=== PATIENT | female | born 1990 | race Caucasian/White ===

== ENCOUNTER 2017-05-02 08:49 | Inpatient (IN) | payer MEDICARE, MEDICAID ==
[~2017-05-02] VITALS: Ht 144.8 cm; Wt 81.2 kg
[~2017-05-02 08:49] MED LIST: CARB200T1 PO; LEVE750T25 PO
[2017-05-02 08:53] VITALS: BP 150/106
--- NOTE | 2017-05-02 08:59 | NUR ---
PATIENT TO ER BED 6.
--- NOTE | 2017-05-02 09:13 | NUR ---
26/F bib mother for evaluation of epigastric pain since last night. Pt denies N/V/D/. Pt denies fever, c/o chills. Afebrile. AOX4, bahamian speaking. Pt unable to ambulate, hx spina bifida and seizures. VSS.
--- NOTE | 2017-05-02 09:20 | NUR ---
PATIENT BEING EVALUATED BY DR. DUARTE.
[2017-05-02] MEDS ORDERED: NACL 0.9% 1,000 ML IV SCH (09:22)
[2017-05-02] MEDS ORDERED: FAMOTIDINE 20 MG/2 ML VIAL IVP ONE (09:25)
[2017-05-02] MEDS ORDERED: DICYCLOMINE HCL LIQUID 20 MG, ALUMINUM HYD/MAG/SIMETHICONE 30 ML, LIDOCAINE VISCOUS 2% ... PO ONE ×3 (09:25)
[2017-05-02 10:14] LABS: BASOPHILS # (AUTO) 0.1 K/uL (0.00-0.22); BASOPHILS % (AUTO) 0.8 % (0.0-2.0); EOSINOPHILS # (AUTO) 0.2 K/uL (0-0.4); EOSINOPHILS % (AUTO) 1.6 % (0.0-4.0); HEMATOCRIT 39.7 % (36-48); HEMOGLOBIN 12.8 g/dL (12.0-16.0); LYMPHOCYTES # (AUTO) 0.4 K/uL (2.5-16.5); LYMPHOCYTES % (AUTO) 3.5 % (20.5-51.1); MEAN CORPUSCULAR HEMOGLOBIN 26 pg (27-31); MEAN CORPUSCULAR HGB CONC 32 g/dL (33-37); MEAN CORPUSCULAR VOLUME 79 fL (80-94); MONOCYTES # (AUTO) 0.1 K/uL (0.8-1.0); MONOCYTES % (AUTO) 1.1 % (1.7-9.3); NEUTROPHILS # (AUTO) 11.4 K/uL (1.8-7.7); PLATELET COUNT (AUTO) 337 K/uL (140-450); RED BLOOD CELL COUNT(AUTO) 5.02 MIL/uL (4.20-5.40); RED CELL DISTRIBUTION WIDTH 13.2 % (11.6-13.7); WHITE BLOOD COUNT (AUTO) 12.2 K/uL (4.8-10.8)
[2017-05-02 10:24] LABS: ANION GAP 14.4 (8-16); CARBON DIOXIDE 26.4 mmol/L (21-32); CREATININE 0.4 mg/dL (0.6-1.3); POTASSIUM 4.8 mmol/L (3.5-5.1)
[2017-05-02 10:29] LABS: ALBUMIN 3.5 g/dL (3.4-5.0); TOTAL BILIRUBIN 0.8 mg/dL (0.0-1.0)
--- NOTE | 2017-05-02 10:37 | NUR ---
Madeline care performed. New dry clear brief applied. Pt tolerated well. Pt placed in position of comfort. VSS.
[2017-05-02 11:00] LABS: APPEARANCE,URINE HAZY (CLEAR); BILIRUBIN,URINE NEGATIVE (NEGATIVE); BLOOD, URINE NEGATIVE (NEGATIVE); LEUKOCYTE ESTERASE ,URINE NEGATIVE (NEGATIVE); NITRITE, URINE POSITIVE (NEGATIVE); PH,URINE 7.5 (5.0-9.0); UGLUCOSE NEGATIVE (NEGATIVE)
[2017-05-02 11:03] LABS: COLOR,URINE YELLOW (YELLOW)
[2017-05-02 11:05] LABS: RBC,URINE 0-2 /HPF (0-5); WBC,URINE 0-4 /HPF (0-5)
--- NOTE | 2017-05-02 11:06 | NUR ---
Mother at bedside. Pt resting comfortably VSS.
[2017-05-02] MEDS ORDERED: cefTRIAXone 1,000 MG VIAL ONE (11:23)
[2017-05-02] MEDS ORDERED: ONDANSETRON 4 MG/2 ML VIAL IVP PRN (11:25)
[2017-05-02 11:52] LABS: PROTHROMBIN TIME 10.1 secs (10.8-13.4)
--- NOTE | 2017-05-02 11:56 | NUR ---
Patient will be admitted to care of Dr. Hargrove. Admited to M/S. Will go to room 110-B. Belongings list completed. Report to Daiana DORADO.
[2017-05-02 11:59] LABS: CHOL/HDL RATIO 2.8 (1-4.5); FREE T4 (FREE THYROXINE) 1.08 ng/dL (0.76-1.46); MAGNESIUM 2.1 mg/dL (1.8-2.4); PHOSPHORUS 3.5 mg/dL (2.5-4.9); THYROID STIMULATING HORMONE 1.61 uIU/mL (0.34-3.74)
--- NOTE | 2017-05-02 12:25 | NUR ---
PT AWAKE AND ALERT, NO SIGNS OF ACUTE DISTRESS. ESTONIAN SPEAKING. BOWEL SOUNDS ACTIVE IN ALL 4 QUADRANTS. BOWEL AND BLADDER INCONTINENCE. UNABLE TO AMBULATE. SKIN INTACT. IV PATENT AND ASYMPTOMATIC. PATIENT DENIES PAIN AT THIS TIME. ORIENTED PATIENT TO HOSPITAL AND TO UNIT, PATIENT VERBALIZES UNDERSTANDING. BED IN LOW POSITION WITH BILATERAL HALF SIDE RAILS UP, CALL LIGHT WITHIN REACH, SAFETY CHECKS IN PLACE. WILL CONTINUE TO MONITOR.
--- NOTE | 2017-05-02 12:25 | NUR ---
PT AWAKE AND ALERT, NO SIGNS OF ACUTE DISTRESS. VITALS STABLE BLOOD PRESSURE 135/83, PULSE 108, OXYGEN SATURATION 94%, RESPIRATIONS 18BPM, PAIN 0/10, TEMPERATURE 98.6. WILL CONTINUE TO MONITOR.
[2017-05-02] MEDS ORDERED: SODIUM PHOSPHATE 118 ML ENEM RC SCH (13:09)
[2017-05-02] MEDS: NACL 0.9% 1,000 ML IV SCH ×2 (14:41→20:46)
[2017-05-02] MEDS ORDERED: LACTULOSE 20 GM/30 ML UDC PO SCH (15:13)
--- NOTE | 2017-05-02 15:27 | NUR ---
RECEIVED NEW ORDERS FROM DR BETH, NOTED, WILL CARRY OUT.
--- NOTE | 2017-05-02 15:45 | NUR ---
PERFORMED FLEET ENEMA, PATIENT TOLERATED WELL, HAD SMALL BM, SOFT AND BROWN. WILL CONTINUE TO MONITOR.
[2017-05-02 16:00] VITALS: BP 127/78
--- NOTE | 2017-05-02 16:30 | NUR ---
PATIENT HAD LARGE BOWEL MOVEMENT, SOFT AND BROWN. WILL CONTINUE TO MONITOR.
--- NOTE | 2017-05-02 16:38 | NUR ---
SPOKE WITH DR GENTILE AND DR BETH REGARDING PATIENT PAIN IN ABDOMEN. RECEIVED ORDER FOR MORPHINE PRN. WILL AWAIT FOR PHARMACY TO VERIFY ORDER.
--- NOTE | 2017-05-02 17:10 | NUR ---
MORPHINE PRN ORDER STILL NOT VERIFIED BY PHARMACY CALLED AFTER HOURS PHARMACY NUMBER, WILL AWAIT VERIFICATION.
[2017-05-02] MEDS: MORPHINE SULFATE 2 MG/ML SYR IVP PRN (17:28)
--- NOTE | 2017-05-02 17:28 | NUR ---
PT ON RIGHT SIDE, NO SIGNS OF ACUTE DISTRESS. ADMINISTERED MORPHINE 2MG IVP ORDERED PRN FOR PAIN, WILL CONTINUE TO MONITOR.
--- NOTE | 2017-05-02 19:20 | NUR ---
PT AWAKE AND ALERT, NO SIGNS OF ACUTE DISTRESS. ENDORSED TO OR DIRECTOR NURSE FOR CONTINUITY OF CARE.
--- NOTE | 2017-05-02 19:21 | NUR ---
PATIENT IS CURRENTLY RESTING IN BED AWAKE ALERT ORIENTED KISWAHILI SPEAKING MOTHER AND BROTHER AT BEDSIDE WITH THE PATIENT.PATIENT DENIES PAIN IVF INFUSING WELL IV SITE PATENT NO INFILTRATION NOTED.PATIENT IS INCONTINENT BUT SHE IS CURRENTLY DRY AND CONTINUES TO HAVE SCD'S IN PLACE TO BOTH LOWER EXTREMITIES.CALL LIGHT WITHIN REACH WILL CONTINUE TO MONITOR.
--- NOTE | 2017-05-02 19:40 | NUR ---
MOTHER SHOWED ME PATIENT'S HOME MEDICATION AND WANT ME TO CHECK IF PATIENT WILL BE GETTING THIS MEDS TONITE PATIENT MOTHER STATES,"ITS TO PREVENT SEIZURES."I CHECKED AND TOLD THE MOTHER THAT THESE MEDS HAVE BEEN ALREADY ORDERED AND PATIENT WILL GET A DOSE TONIGHT ORDERED AND SIDE RAILS WILL BE PADDED FOR SEIZURE PRECAUTIONS.CALL LIGHT WITHIN REACH.
--- NOTE | 2017-05-02 20:00 | NUR ---
Patient's Plan of Care was discussed and reviewed with DEFLECTOR OPERATOR: VERONIQUE HUERTA
[2017-05-02 20:05] VITALS: BP 137/95
[2017-05-02] MEDS: carBAMazepine 200 MG TAB PO SCH (20:18)
[2017-05-02] MEDS: DOCUSATE SODIUM 100 MG GELCAP PO SCH (20:18)
[2017-05-02] MEDS: levETIRAcetam 500 MG TAB PO SCH (20:19)
[2017-05-02] MEDS ORDERED: NON-FORMULARY ITEM (Levetiracetam* (Keppra Xr*) 750 MG) PO SCH (21:00)
--- NOTE | 2017-05-02 22:15 | NUR ---
PATIENT CURRENTLY RESTING IN BED DENIES PAIN AT THIS TIME.CONTINUES TO BE KEPT CLEAN AND DRY NEEDS MET WILL CONTINUE TO MONITOR,IVF INFUSING WELL WILL CONTINUE TO MONITOR.
--- NOTE | 2017-05-03 00:02 | NUR ---
PATIENT IS CURRENTLY RESTING IN BED BUT AWAKENED FOR VITAL SIGNS AT THIS TIME.PATIENT DENIES PAIN,I CHECKED HER SHE IS CURRENTLY CLEAN AND DRY.IVF INFUSING WELL IV SITE PATENT.NO SEIZURE ACTIVITY NOTED SIDE RAILS PADDED FOR SAFETY.CONTINUES TO HAVE THE SCD'S IN PLACE FOR DVT PROPHALAXIS TO BOTH LOWER EXTREMITIES.CALL LIGHT WITHIN REACH WILL CONTINUE TO MONITOR.PATIENT CONTINUES TO BE NPO EXCEPT FOR MEDS.
[2017-05-03 00:04] VITALS: BP 112/56
--- NOTE | 2017-05-03 02:40 | NUR ---
PATIENT SLEEPING AT THIS TIME.PATIENT TURNED AND REPOSITIONED AND THEN WENT BACK TO SLEEP,IVF INFUSING WELL IV SITE PATENT WILL CONTINUE TO MONITOR.CALL LIGHT WITHIN REACH.
[2017-05-03] MEDS: NACL 0.9% 1,000 ML IV SCH ×4 (04:07→23:47)
--- NOTE | 2017-05-03 04:22 | NUR ---
PATIENT IS CURRENTLY RESTING IN BED,IVF INFUSING WELL IV SITE PATENT PATIENT HAS AN EPISODE OF INCONTINENCE I TOLD DANIELA BRAN AND DANIELA JAFFE TO CLEAN THE PATIENT AND TO TURN AND REPOSITION THE PATIENT.
--- NOTE | 2017-05-03 05:43 | NUR ---
I CALLED RADIOLOGY AND SPOKE TO GURJIT AND TOLD HIM THAT I STILL DON'T HAVE ANY RESULTS FOR THE US ABDOMEN LIMITED.HE SAID HE WILL CHECK AND SAID THE TEST WAS DONE YESTERDAY THEN HE SAID HE WILL CALL ME BACK.
--- NOTE | 2017-05-03 05:46 | NUR ---
GURJIT FROM RADIOLOGY BROUGHT THE RESULTS OF THE US ABDOMEN LIMITED AND HANDED TO ME. WILL PLACE IN THE CHART.
[2017-05-03 06:26] LABS: ANION GAP 14.1 (8-16); CARBON DIOXIDE 23.5 mmol/L (21-32); CREATININE 0.4 mg/dL (0.6-1.3); POTASSIUM 3.6 mmol/L (3.5-5.1)
[2017-05-03 06:40] LABS: BASOPHILS # (AUTO) 0.2 K/uL (0.00-0.22); BASOPHILS % (AUTO) 1.1 % (0.0-2.0); EOSINOPHILS # (AUTO) 0.2 K/uL (0-0.4); EOSINOPHILS % (AUTO) 1.7 % (0.0-4.0); HEMATOCRIT 36.3 % (36-48); HEMOGLOBIN 11.7 g/dL (12.0-16.0); LYMPHOCYTES # (AUTO) 1.2 K/uL (2.5-16.5); LYMPHOCYTES % (AUTO) 8.3 % (20.5-51.1); MEAN CORPUSCULAR HEMOGLOBIN 26 pg (27-31); MEAN CORPUSCULAR HGB CONC 32 g/dL (33-37); MEAN CORPUSCULAR VOLUME 82 fL (80-94); MONOCYTES # (AUTO) 0.6 K/uL (0.8-1.0); MONOCYTES % (AUTO) 4.1 % (1.7-9.3); NEUTROPHILS % (AUTO) 84.8 % (42.2-75.2); PLATELET COUNT (AUTO) 256 K/uL (140-450); RED BLOOD CELL COUNT(AUTO) 4.46 MIL/uL (4.20-5.40); RED CELL DISTRIBUTION WIDTH 13.5 % (11.6-13.7); WHITE BLOOD COUNT (AUTO) 14.2 K/uL (4.8-10.8)
--- NOTE | 2017-05-03 06:54 | NUR ---
PATIENT CURRENTLY AWAKE RESTING IN BED IN NO DISTRESS WILL CONTINUE TO MONITOR.CALL LIGHT WITHIN REACH.PATIENT CONTINUES TO BE CLEAN AND DRY.
[2017-05-03] MEDS: PANTOPRAZOLE 40 MG TABEC PO SCH (06:55)
--- NOTE | 2017-05-03 07:01 | NUR ---
PATIENT HAS BEEN SCREENED AND CATEGORIZED MODERATE NUTRITION RISK. PATIENT WILL BE SEEN WITHIN 3-5 DAYS OF ADMISSION. 05/05/17-05/07/17 WESLEY ARCHULETA MS, RDN
--- NOTE | 2017-05-03 07:11 | NUR ---
PATIENT STABLE REPORT ENDORSED TO ESTRADA VICTORIA AT BEDSIDE.
--- NOTE | 2017-05-03 07:12 | NUR ---
RECEIVED REPORT FROM ENVIRONMENTAL SERVICES FLOOR TECH NURSE AT BEDSIDE FOR CONTINUITY OF CARE. PT IS AWAKE AND ORIENTED. PT IS NEPALI SPEAKING. SCD ON LE. IV LEFT FA 22G NS AT 100ML/HR. LBM 05/02. SEIZURE AND FALL PRECAUTIONS IN PLACE. PT ON BEDREST. WILL BE BACK TO CONTINUE WITH MORNING MEDICATIONS.
--- NOTE | 2017-05-03 07:45 | NUR ---
VS: WNL. UPDATED BOARD. PT COMPLAINED OF PAIN IN R UPPER ABD. WILL MEDICATE WITH MORNING MEDS. PT STILL NPO WILL DISCUSS WITH MD ABOUT DIET. PT TO HAVE DOPPLER STUDIES TODAY. WILL CONTINUE TO MONITOR PT.
[2017-05-03 08:00] VITALS: BP 124/74
[2017-05-03] MEDS: carBAMazepine 200 MG TAB PO SCH ×2 (08:57→20:20)
[2017-05-03] MEDS: DOCUSATE SODIUM 100 MG GELCAP PO SCH ×2 (08:58→20:20)
[2017-05-03] MEDS: levETIRAcetam 500 MG TAB PO SCH ×2 (08:59→20:20)
[2017-05-03] MEDS ORDERED: PANTOPRAZOLE 40 MG INJ VIAL IVP SCH (09:00)
[2017-05-03] MEDS: MORPHINE SULFATE 2 MG/ML SYR IVP PRN (09:01)
--- NOTE | 2017-05-03 09:05 | NUR ---
ADMINISTERED MORNING MEDS AND PAIN MEDS. PT TOLERATED WELL. FAMILY AT BEDSIDE. ALL NEEDS MET. WILL CONTINUE TO MONITOR PT.
--- NOTE | 2017-05-03 10:50 | NUR ---
CHECKED ON PT. PT ON THE PHONE. NO COMPLAINTS AT THIS TIME. PAIN IS BETTER. WILL CONTINUE TO MONITOR.
--- NOTE | 2017-05-03 13:12 | NUR ---
CHECKED ON PT. ADMINISTERED NEW BAG OF NS AT 120ML/HR. NO COMPLAINTS AT THIS TIME. FAMILY AT BEDSIDE. WILL CONTINUE TO MONITOR.
[2017-05-03] MEDS ORDERED: LACTOBACILLUS RHAMNOSUS GG 1 EACH CAP PO SCH (14:00)
--- NOTE | 2017-05-03 14:10 | NUR ---
GOT CONSENT SIGNED BY MOM FOR CT OF ABD/PEL W/ CONTRAST. PT WILL EAT AFTER CT. ORDERED DIET.
[2017-05-03 16:00] VITALS: BP 139/81
--- NOTE | 2017-05-03 17:15 | NUR ---
PT STILL WAITING FOR CT ABD/PEL W/ CONTRAST. RADIOLOGY CALLED. MACHINE DOWN. ONCE FIXED WILL COMES GET PT.
--- NOTE | 2017-05-03 17:51 | NUR ---
RADIOLOGY TOOK PT FOR CT.
--- NOTE | 2017-05-03 18:46 | NUR ---
ADMINISTERED LATE MEDS. LACTOBACILLUS AND ROCEPHIN. PT TOLERATED WELL. PT LATE DINNER AFTER RETURNING FROM CT. NO COMPLAINTS AT THIS TIME. WILL CONTINUE TO MONITOR PT.
--- NOTE | 2017-05-03 19:15 | NUR ---
ENDORSED PT TO THE NIGHTSHIFT NURSE AT BEDSIDE FOR CONTINUITY OF CARE. PT IS EATING DINNER. MOM AT BEDSIDE. PT IS IN STABLE CONDITION.
--- NOTE | 2017-05-03 19:16 | NUR ---
PATIENT IS CURRENTLY SITTING UP IN BED EATING HER DINNER AND FAMILY AT BEDSIDE WITH THE PATIENT.IVF INFUSING WELL IV SITE PATENT NO INFILTRATION NOTED.PATIENT CONTINUES TO BE TURNED AND REPOSITIONED KEPT CLEAN AND DRY AND CONTINUES TO WEAR THE SCD'S FOR DVT PROPHALAXIS.PATIENT DENIES PAIN NEEDS CONTINUE TO BE MET.CALL LIGHT ALWAYS WITHIN REACH WILL CONTINUE TO MONITOR.
--- NOTE | 2017-05-03 19:30 | NUR ---
Patient's Plan of Care was discussed and reviewed with VIRTUAL CLASSROOM MANAGER: JUAN
[2017-05-03 20:00] VITALS: BP 132/83
--- NOTE | 2017-05-03 20:00 | NUR ---
Patient's Plan of Care was discussed and reviewed with TRUCK MANAGER: VERONIQUE HUERTA
--- NOTE | 2017-05-03 22:15 | NUR ---
PATIENT RESTING IN BED DENIES PAIN IVF INFUSING WELL IV SITE PATENT.CONTINUES TO BE TURNED AND REPOSITIONED FOR COMFORT.CALL LIGHT WITHIN REACH.
--- NOTE | 2017-05-04 00:05 | NUR ---
PATIENT IS SLEEPING AT THIS TIME AWAKENED FOR VITAL SIGNS PATIENT STABLE DENIES ANY PAIN.IVF INFUSING WELL IV SITE PATENT CALL LIGHT WITHIN REACH WILL CONTINUE TO MONITOR.
[2017-05-04 00:28] VITALS: BP 110/63
--- NOTE | 2017-05-04 02:56 | NUR ---
PATIENT IS CURRENTLY SLEEPING IN BED SNORING AT THIS TIME,IVF INFUSING WELL IV SITE PATENT CALL LIGHT WITHIN REACH NO SEIZURE ACTIVITY HAS BEEN NOTED.WILL CONTINUE TO MONITOR.
--- NOTE | 2017-05-04 04:15 | NUR ---
PATIENT IS CURRENTLY STABLE SLEEPING IN BED WILL CONTINUE TO MONITOR. CALL LIGHT WITHIN REACH.
[2017-05-04] MEDS: PANTOPRAZOLE 40 MG TABEC PO SCH (05:35)
--- NOTE | 2017-05-04 05:54 | NUR ---
PATIENT IS CURRENTLY SLEEPING IN BED AT THIS TIME NO PAIN OR DISCOMFORT NOTED NO SEIZURE ACTIVITY NOTED AT THIS TIME.IVF INFUSING WELL IV SITE PATENT WILL CONTINUE TO MONITOR.
[2017-05-04 05:55] LABS: BASOPHILS # (AUTO) 0.1 K/uL (0.00-0.22); BASOPHILS % (AUTO) 1.2 % (0.0-2.0); EOSINOPHILS # (AUTO) 0.1 K/uL (0-0.4); EOSINOPHILS % (AUTO) 1.6 % (0.0-4.0); HEMOGLOBIN 11.4 g/dL (12.0-16.0); LYMPHOCYTES # (AUTO) 1.3 K/uL (2.5-16.5); LYMPHOCYTES % (AUTO) 14.3 % (20.5-51.1); MEAN CORPUSCULAR HEMOGLOBIN 27 pg (27-31); MEAN CORPUSCULAR HGB CONC 33 g/dL (33-37); MEAN CORPUSCULAR VOLUME 81 fL (80-94); MONOCYTES # (AUTO) 0.7 K/uL (0.8-1.0); MONOCYTES % (AUTO) 7.8 % (1.7-9.3); NEUTROPHILS # (AUTO) 6.9 K/uL (1.8-7.7); NEUTROPHILS % (AUTO) 75.1 % (42.2-75.2); PLATELET COUNT (AUTO) 252 K/uL (140-450); RED BLOOD CELL COUNT(AUTO) 4.31 MIL/uL (4.20-5.40); RED CELL DISTRIBUTION WIDTH 13.5 % (11.6-13.7); WHITE BLOOD COUNT (AUTO) 9.1 K/uL (4.8-10.8)
[2017-05-04 06:21] LABS: PHOSPHORUS 3.7 mg/dL (2.5-4.9)
[2017-05-04 06:22] LABS: ALBUMIN 2.9 g/dL (3.4-5.0); ANION GAP 12.5 (8-16); CARBON DIOXIDE 24.2 mmol/L (21-32); CREATININE 0.4 mg/dL (0.6-1.3); POTASSIUM 3.7 mmol/L (3.5-5.1); TOTAL BILIRUBIN 0.2 mg/dL (0.0-1.0)
--- NOTE | 2017-05-04 07:41 | NUR ---
PATIENT STABLE REPORT ENDORSED TO ESTRADA MCINTYRE AT BEDSIDE.
--- NOTE | 2017-05-04 07:42 | NUR ---
RECEIVED REPORT FROM RATTLE LEAK AND SQUEAK REPAIRER NURSE AT BEDSIDE. PT IS A&OX2 DOMINICAN ONLY. PT HAS CLUB FOOT, PT IS BEDBOUND. PT HAS IV ON L U/A 20G RUNNING NS@120. PT HAS SCDS ON. NO DISTRESS NOTED. CALL LIGHT WITHIN REACH. WILL CONTINUE TO MONITOR.
[2017-05-04 08:00] VITALS: BP 146/97
[2017-05-04] MEDS: levETIRAcetam 500 MG TAB PO SCH ×2 (08:44→20:26)
[2017-05-04] MEDS: carBAMazepine 200 MG TAB PO SCH ×2 (08:45→20:26)
[2017-05-04] MEDS: DOCUSATE SODIUM 100 MG GELCAP PO SCH ×2 (08:45→20:26)
[2017-05-04] MEDS: LACTOBACILLUS RHAMNOSUS GG 1 EACH CAP PO SCH (08:45)
[2017-05-04] MEDS: TAMSULOSIN 0.4 MG CAP PO SCH (08:45)
--- NOTE | 2017-05-04 09:30 | NUR ---
PT IS RESTING COMFORTABLY IN BED. CALL LIGHT WITHIN REACH. WILL CONTINUE TO MONITOR.
--- NOTE | 2017-05-04 10:31 | NUR ---
05/04/17 RD INITIAL ASSESSMENT COMPLETED PLEASE REFER TO NUTRITION ASSESSMENT UNDER CARE ACTIVITY FOR ESTIMATED NUTRITIONAL NEEDS. 1. CONTINUE REGULAR DIET 2. RD TO FOLLOW-UP 3-5 DAYS, MODERATE RISK GUILLAUME KAPLAN RD
--- NOTE | 2017-05-04 11:00 | NUR ---
ASSESSED PT SKIN WITH WOUND CARE NURSE. SKIN INTACT. PT TOLERATED WELL. CHANGED PT'S PAD. CALL LIGHT WITHIN REACH. WILL CONTINUE TO MONITOR.
--- NOTE | 2017-05-04 11:31 | NUR ---
CM NOTE PER WIRE ROLLER STEVE, REVIEWS SHOULD ONLY BE SENT TO [facility], NOT TO [facility] FAXED INITIAL REVIEW TO [facility] [phone] SAMPSON FARMER [phone]
--- NOTE | 2017-05-04 11:34 | NUR ---
WOUND CARE EVALUATION NOTES: REASON FOR EVALUATION: LOW MARYANN SCORE COMPLETE SKIN ASSESSMENT DONE ON THIS 26 Y/O FEMALE PATIENT FROM HOME TO [facility], WITH INITIAL DIAGNOSIS OF RIGHT UPPER QUADRANT ABDOMEN PAIN/ EPIGASTRIC PAIN AND ELEVATED LFT. 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 ALL ABOVE INFORMATION WAS OBTAINED FROM THE ADMISSION H&P. LABS ARE WBC 9.1, H/H 11.4/35.0, GLUCOSE 87, ALBUMIN 2.9, PT/INR 10.1/1.0 AND PTT 27.4. CURRENT MEDIATIONS INCLUDE CEFTRIAXONE, KEPPRA, PROTONIX, TEGRETOL AND MORPHINE. PATIENT IS AWAKE, UNABLE TO FOLLOW SIMPLE COMMAND. INCONTINENT OF BOWEL AND BLADDER, SKIN WARM TO TOUCH WNL, NO EDEMA BLE, FINE HAIR GROWTH AND BILATERAL PEDAL PULSES PRESENT AND STRONG. NEEDS MAX ASSISTANCE IN TURNING. INITIAL PLAN OF CARE AND PRESSURE PREVENTIVE MEASURES DISCUSSED WITH PRIMARY RN AND MOTHER. INTEGUMENTARY: SKIN INTACT LOWER ABDOMEN OLD SURGICAL SCAR POSTERIOR MID BACK OLD SURGICAL SCAR - SACRALCOCCYX TO PERIAREA - INCONTINENCE ASSOCIATED DERMATITIS. RECOMMENDATIONS: -WOUND CARE BED IN PLACE. -HYDRAGUARD TO SACRALCOCCYX TO MILLER-AREAS BID AND PRN SOILING, OPEN TO AIR DRY -TURN AND REPOSITION PATIENT Q2H -ASSESS AND MONITOR BLANCHABLE REDNESS ON LEFT ARM, RIGHT LATERAL BACK, RIGHT LATERAL THIGH AND BLE. NOTIFY PMD OF ANY ABNORMAL CHANGES -OFFLOAD BILATERAL HEELS BY PLACING PILLOWS UNDER CALVES AT ALL TIMES, UNLESS OTHERWISE CONTRAINDICATED -KEEP SKIN CLEAN AND DRY AT ALL TIMES. RECOMMENDATIONS DISCUSSED WITH MD AND PRIMARY RN. WILL FOLLOW UP PATIENT Q 7 DAYS AND PRN. PLEASE CONTACT [facility] FOR ANY CONCERNS, QUESTIONS AND CHANGES IN SKIN CONDITION.
[2017-05-04] MEDS ORDERED: HYDRAGUARD CREAM TP PRN (11:55)
[2017-05-04] MEDS: HYDRAGUARD CREAM TP SCH (12:31)
--- NOTE | 2017-05-04 13:00 | NUR ---
INSERTED NEW IV ON R HAND 22 G. PT TOLERATED WELL. REMOVED OLD IV CANNULA INTACT. CALL LIGHT WITHIN REACH. WILL CONTINUE TO MONITOR.
[2017-05-04] MEDS: NACL 0.9% 1,000 ML IV SCH ×2 (14:26→22:55)
--- NOTE | 2017-05-04 15:30 | NUR ---
PT IS RESTING COMFORTABLY IN BED. NO DISTRESS NOTED. NO COMPLAINTS. CALL LIGHT WITHIN REACH. WILL CONTINUE TO MONITOR.
[2017-05-04 16:00] VITALS: BP 139/99
--- NOTE | 2017-05-04 17:30 | NUR ---
PT SAT UP IN BED TO EAT DINNER. FAMILY AT BEDSIDE. TOLERATED WELL. CALL LIGHT WITHIN REACH. WILL CONTINUE TO MONITOR.
--- NOTE | 2017-05-04 19:30 | NUR ---
ENDORSED CARE OF PT TO JAMIL RN AT BEDSIDE. PT IN STABLE CONDITION.
--- NOTE | 2017-05-04 19:31 | NUR ---
RECEIVED REPORT FROM AM NURSE. PT FAMILY AT BEDSIDE, PT RESTING IN BED, AOX2, FORGETFUL AND CONFUSED AT TIMES, ABLE TO VERBALIZE NEEDS. PT DENIES CHEST PAIN, SOB OR S/S OF ACUTE DISTRESS. PT DENIES ABD PAIN AT THIS TIME. IV ACCESS ASYMPTOMATIC, PATENT AND INTACT. IVF INFUSING WELL. DISCUSSED AND REVIEWED PLAN OF CARE WITH PT AND FAMILY. PT STATED "OK." WILL CONTINUE WITH CONSTANT REINFORCEMENT. ALL NEEDS MET. SAFETY MEASURES ENSURED. CALL LIGHT WITHIN REACH. WILL CONTINUE TO MONITOR.
[2017-05-04 20:00] VITALS: BP 147/80
--- NOTE | 2017-05-04 20:31 | NUR ---
ADMINISTERED DUE MEDICATIONS WITH EDUCATION. PT STATED "OK," TOLERATED MEDS WELL. PT TURNED AND REPOSITIONED, OFFLOADED PRESSURE AREAS. PT TOLERATED WELL. SAFETY MEASURES ENSURED. CALL LIGHT WITHIN REACH. WILL CONTINUE TO MONITOR.
[2017-05-05] VITALS: BP 128/72
--- NOTE | 2017-05-05 | NUR ---
PT CLEANED. PT TURNED AND REPOSITIONED, OFFLOADED PRESSURE AREAS. PT TOLERATED WELL. ALL NEEDS MET. SAFETY MEASURES ENSURED. CALL LIGHT WITHIN REACH. WILL CONTINUE TO MONITOR.
[2017-05-05] MEDS: HYDRAGUARD CREAM TP SCH ×2 (01:00→12:21)
--- NOTE | 2017-05-05 02:00 | NUR ---
PT SLEEPING COMFORTABLY BUT AROUSABLE. HYDRAGUARD NOT FOUND AT BEDSIDE OR PT CASSETTE. PT TURNED AND REPOSITIONED, OFFLOADED PRESSURE AREAS BY CNAs. SAFETY MEASURES ENSURED. CALL LIGHT WITHIN REACH. WILL CONTINUE TO MONITOR.
--- NOTE | 2017-05-05 04:04 | NUR ---
PT SLEEPING. PT TURNED AND REPOSITIONED BY CNAs, OFFLOADED PRESSURE AREAS. PT TOLERATED WELL. ALL NEEDS MET. IVF INFUSING WELL. SAFETY MEASURES ENSURED. CALL LIGHT WITHIN REACH.
[2017-05-05] MEDS: PANTOPRAZOLE 40 MG TABEC PO SCH (05:37)
--- NOTE | 2017-05-05 05:38 | NUR ---
ADMINISTERED DUE MED WITH EDUCATION. PT STATED "OK," TOLERATED MED WELL. PT CLEANED, TURNED AND REPOSITIONED BY CNAs. PT TOLERATED WELL. ALL NEEDS MET. SAFETY MEASURES ENSURED. CALL LIGHT WITHIN REACH. WILL CONTINUE TO MONITOR
[2017-05-05] MEDS: NACL 0.9% 1,000 ML IV SCH ×3 (06:10→23:46)
[2017-05-05 06:32] LABS: BASOPHILS # (AUTO) 0.2 K/uL (0.00-0.22); BASOPHILS % (AUTO) 1.7 % (0.0-2.0); EOSINOPHILS # (AUTO) 0.3 K/uL (0-0.4); EOSINOPHILS % (AUTO) 2.8 % (0.0-4.0); HEMATOCRIT 35.4 % (36-48); HEMOGLOBIN 11.7 g/dL (12.0-16.0); LYMPHOCYTES # (AUTO) 1.9 K/uL (2.5-16.5); LYMPHOCYTES % (AUTO) 19.6 % (20.5-51.1); MEAN CORPUSCULAR HEMOGLOBIN 27 pg (27-31); MEAN CORPUSCULAR HGB CONC 33 g/dL (33-37); MEAN CORPUSCULAR VOLUME 81 fL (80-94); MONOCYTES # (AUTO) 0.5 K/uL (0.8-1.0); MONOCYTES % (AUTO) 5.3 % (1.7-9.3); NEUTROPHILS % (AUTO) 70.6 % (42.2-75.2); PLATELET COUNT (AUTO) 277 K/uL (140-450); RED BLOOD CELL COUNT(AUTO) 4.39 MIL/uL (4.20-5.40); RED CELL DISTRIBUTION WIDTH 13.6 % (11.6-13.7); WHITE BLOOD COUNT (AUTO) 9.9 K/uL (4.8-10.8)
[2017-05-05 07:00] LABS: ANION GAP 14.3 (8-16); CARBON DIOXIDE 26.4 mmol/L (21-32); CREATININE 0.4 mg/dL (0.6-1.3); POTASSIUM 3.7 mmol/L (3.5-5.1)
--- NOTE | 2017-05-05 07:20 | NUR ---
ENDORSED PLAN OF CARE TO AM NURSE. CONDITION STABLE.
--- NOTE | 2017-05-05 07:25 | NUR ---
RECEIVED PATIENT REPORT AT BEDSIDE FROM NIGHT NURSE. PATIENT IS AAOX2 AND SHOWS NO S/S OF ACUTE DISTRESS ON ROOM AIR AND DENIES PAIN. PATIENT SKIN IS INTACT WITH SACRAL REDNESS. PATIENT IV NOTED ON THE L HAND WITH IVF'S INFUSING WELL. THE PATIENT WAS EXPLAINED ABOUT HOW TO USE THE CALL LIGHT FOR ANY ASSISTANCE. PATIENT VERBALIZED UNDERSTANDING OF HOW TO USE THE CALL LIGHT. THE BED IS LOWERED WITH CALL LIGHT WITHIN REACH. WILL CONTINUE TO MONITOR.
[2017-05-05 08:00] VITALS: BP 126/80
--- NOTE | 2017-05-05 08:15 | NUR ---
PATIENT IS BEING SEE BY DR Ilan WICK.
[2017-05-05] MEDS ORDERED: IBUPROFEN 800 MG TAB PO PRN (08:20)
[2017-05-05] MEDS ORDERED: ACETAMINOPHEN/CODEINE 300/30MG 1 TAB PO PRN (08:20)
[2017-05-05] MEDS ORDERED: ONDANSETRON 4 MG/2 ML VIAL IVP PRN ×2 (08:20→09:10)
--- NOTE | 2017-05-05 08:25 | NUR ---
PATIENT FAMILY IS AT BEDSIDE. SPOKE WITH MOTHER ON THE PHONE AND VERBALIZED CONSENT FOR PATIENT TO HAVE SURGERY TODAY WITH DR. Ilan WICK. CONFIRMED CONSENT WITH TWO RN'S MYSELF AND NICOLASA DORADO. PATIENT SISTER ALSO WITNESSED. PATIENT IS AWAKE AND SHOWS NO S/S OF DISTRESS ON ROOM AIR. PATIENT LEFT UNIT IN STABLE CONDITION. WILL ADMINISTER MEDICATIONS WHEN PATIENT ARRIVES BACK ON UNIT
[2017-05-05] MEDS ORDERED: BUPIVACAINE-MPF/EPI 0.5% 30 ML VIAL INJ ONE (08:34)
[2017-05-05] MEDS ORDERED: PROPOFOL 200 MG/20 ML VIAL IV ONE (08:35)
[2017-05-05] MEDS ORDERED: SEVOFLURANE 250 ML BTL INH ONE (08:35)
[2017-05-05] MEDS ORDERED: ONDANSETRON 4 MG/2 ML VIAL ONE (08:35)
[2017-05-05] MEDS ORDERED: MIDAZOLAM 2 MG/2 ML VIAL ONE (08:46)
[2017-05-05] MEDS ORDERED: fentaNYL 0.05 MG/ML VIAL ONE (08:47)
[2017-05-05] MEDS ORDERED: MEPERIDINE 50 MG/ML SYR ONE (08:47)
--- NOTE | 2017-05-05 08:50 | NUR ---
PT OFF UNIT
[2017-05-05] MEDS: levETIRAcetam 1,000 MG in NACL 0.9% 100 ML IV SCH ×3 (09:00→20:59)
[2017-05-05] MEDS: LACTATED RINGERS 1,000 ML IV SCH ×2 (09:09→17:29)
[2017-05-05] MEDS ORDERED: diphenhydrAMINE 50 MG/ML VIAL IVP PRN (09:10)
[2017-05-05] MEDS ORDERED: MEPERIDINE 25 MG/ML SYR IVP PRN (09:10)
[2017-05-05] MEDS ORDERED: HYDROmorphone 1 MG/ML AMP IVP PRN (09:10)
[2017-05-05] MEDS: HYDROmorphone PFS 2 MG/ML SYR ONE ×2 (10:03→10:13)
--- NOTE | 2017-05-05 10:34 | NUR ---
CM NOTE FAXED CONCURRENT REVIEW TO [facility] [phone] DARIAN [phone]
[2017-05-05 10:42] VITALS: BP 144/104
--- NOTE | 2017-05-05 10:42 | NUR ---
PATIENT ARRIVED ON UNIT C/O SOB. PATIENT WAS GIVEN O2 2L VIA NC. O2 SAT IS 94%. PATIENT SHOWS NO S/S OF ACUTE DISTRESS. PATIENT IS AAOX2. V/S WERE TAKEN AND CHARTED. DR BETH WAS NOTIFIED AND IS SEEING PATIENT. FAMILY AT BEDSIDE AND AWARE OF POC FOR TODAY. MD ANSWERED FAMILY QUESTIONS. FAMILY VERBALIZED UNDERSTANDING. THE BED IS LOWERED WITH CALL LIGHT WITHIN REACH.
[2017-05-05] MEDS: TAMSULOSIN 0.4 MG CAP PO SCH (11:03)
[2017-05-05] MEDS: DOCUSATE SODIUM 100 MG GELCAP PO SCH ×2 (11:03→21:21)
[2017-05-05] MEDS: carBAMazepine 200 MG TAB PO SCH ×2 (11:03→21:22)
[2017-05-05] MEDS: LACTOBACILLUS RHAMNOSUS GG 1 EACH CAP PO SCH (11:03)
--- NOTE | 2017-05-05 11:03 | NUR ---
GAVE PATIENT ICE CHIPS. PATIENT SWALLOWED WITHOUT HESITATION. PATIENT DENIES SORE THROAT. ADMINISTERED SCHEDULED MEDICATIONS. PATIENT TOLERATED ACTIVITY WELL. PATIENT HAS IVF'S INFUSING WELL. FAMILY AT BEDSIDE. PATIENT SHOWS NO S/S OF DISTRESS. THE BED IS LOWERED WITH CALL LIGHT WITHIN REACH.
--- NOTE | 2017-05-05 11:25 | NUR ---
PATIENT IS BEING GIVEN A BED BATH. PATIENT HAS NOTED DARK RED BLOOD ON PERINEAL PAD. I ASKED FAMILY WHEN WAS LAST MENSTRUAL PERIOD. FAMILY DOES NOT KNOW AND SAY SHE HAS IRREGULAR PERIODS. WILL NOTIFY .
[2017-05-05] MEDS: MORPHINE SULFATE 4 MG/ML SYR IM/IVP PRN ×2 (12:21→20:57)
--- NOTE | 2017-05-05 13:30 | NUR ---
SPOKE WITH DR BETH REGARDING PATIENT BLOODY DISCHARGE. PATIENT IS NOTED ASYMPTOMATIC AND BP IS WNL AND CHARTED. STATED SHE SPOKE WITH MOTHER AND BLOODY DISCHARGE IS MENSTRUAL PERIOD. WILL CONTINUE TO MONITOR.
[2017-05-05 16:00] VITALS: BP 134/88
--- NOTE | 2017-05-05 16:00 | NUR ---
PATIENT SHOWS NO S/S OF ACUTE DISTRESS. PATIENT DENIES PAIN. PATIENT HAS FAMILY AT BEDSIDE. WILL CONTINUE TO MONITOR.
--- NOTE | 2017-05-05 18:00 | NUR ---
PATIENT HAS FAMILY AT BEDSIDE. PATIENT IS AAOX2 AND DENIES PAIN AND SHOWS NO S/S OF ACUTE DISTRESS. THE BED IS LOWERED WITH CALL LIGHT WITHIN REACH.
--- NOTE | 2017-05-05 19:40 | NUR ---
GAVE PATIENT REPORT AT BEDSIDE. PATIENT ENDORSED IN STABLE CONDITION.
--- NOTE | 2017-05-05 19:41 | NUR ---
RECD. RESTING IN BED, AWAKE, A/OX2. ON 02 AT 2 LITERS VIA N/C, 02 SAT - 97%, RESPIRATION EVEN AND UNLABORED. IV OF NS AT 60 ML/HR INFUSING, RIGHT HAND G22. INCISION IN THE LOWER ABDOMEN COVERED WITH DRESSING DRY AND INTACT. NOTED SMALL AMOUNT OF PINKISH BLOOD MIXED WITH URINE. BILATERAL CLUB FOOT NOTED. DENIES PAIN 0/10.
[2017-05-05 20:28] VITALS: BP 120/73
--- NOTE | 2017-05-05 21:00 | NUR ---
Patient's Plan of Care was discussed and reviewed with DIRECTOR WOMEN: BLADIMIR CALDERÓN
--- NOTE | 2017-05-05 22:00 | NUR ---
PATIENT CLEANSED AND MADE COMFORTABLE IN BED. NOTED URINE MIXED WITH PINKISH BLOOD.
--- NOTE | 2017-05-06 | NUR ---
SLEEPING COMFORTABLY IN BED.
[2017-05-06] MEDS: HYDRAGUARD CREAM TP SCH ×2 (01:00→14:00)
[2017-05-06] MEDS: LACTATED RINGERS 1,000 ML IV SCH ×2 (01:49→06:33)
--- NOTE | 2017-05-06 04:00 | NUR ---
VS STABLE. RESTING IN BED, NO SOB NOTED.
[2017-05-06] MEDS: NACL 0.9% 1,000 ML IV SCH ×2 (05:34→18:05)
--- NOTE | 2017-05-06 06:00 | NUR ---
NOT YET PASSING GAS. ENCOURAGED TO TURN TO SIDES. ABLE TO USE INCENTIVE SPIROMETER BUT ONLY NEEDS MORE INSTRUCTION FOR IMPROVEMENT.
[2017-05-06 06:13] LABS: BASOPHILS # (AUTO) 0.1 K/uL (0.00-0.22); EOSINOPHILS # (AUTO) 0.3 K/uL (0-0.4); EOSINOPHILS % (AUTO) 2.2 % (0.0-4.0); HEMATOCRIT 34.6 % (36-48); HEMOGLOBIN 11.2 g/dL (12.0-16.0); LYMPHOCYTES # (AUTO) 1.4 K/uL (2.5-16.5); LYMPHOCYTES % (AUTO) 11.8 % (20.5-51.1); MEAN CORPUSCULAR HEMOGLOBIN 26 pg (27-31); MEAN CORPUSCULAR HGB CONC 32 g/dL (33-37); MEAN CORPUSCULAR VOLUME 81 fL (80-94); MONOCYTES # (AUTO) 0.6 K/uL (0.8-1.0); MONOCYTES % (AUTO) 4.8 % (1.7-9.3); NEUTROPHILS # (AUTO) 9.5 K/uL (1.8-7.7); NEUTROPHILS % (AUTO) 80.2 % (42.2-75.2); PLATELET COUNT (AUTO) 307 K/uL (140-450); RED CELL DISTRIBUTION WIDTH 12.9 % (11.6-13.7); WHITE BLOOD COUNT (AUTO) 11.9 K/uL (4.8-10.8)
[2017-05-06] MEDS: PANTOPRAZOLE 40 MG TABEC PO SCH (06:37)
[2017-05-06 06:41] LABS: ANION GAP 13.2 (8-16); CARBON DIOXIDE 25.4 mmol/L (21-32); CREATININE 0.4 mg/dL (0.6-1.3); POTASSIUM 3.6 mmol/L (3.5-5.1)
[2017-05-06 06:50] LABS: MAGNESIUM 1.9 mg/dL (1.8-2.4); PHOSPHORUS 4.1 mg/dL (2.5-4.9)
--- NOTE | 2017-05-06 07:15 | NUR ---
ASSUMED CONTINUITY OF CARE. NO SIGNS AND SYMPTOMS OF ACUTE DISTRESS NOTED. INITIAL ASSESSMENT DONE. KEEP COMFORTABLE ON BED. EXPLAINED DIAGNOSIS, PLAN OF CARE, POST-OP CARE, PAIN MANAGEMENT TEACHING, DIET, USE OF CALL LIGHT/BED/TV/BATHROOM. VERBALIZED UNDERSTANDING. SEIZURE AND FALL PRECAUTION APPLIED. CALL LIGHT WITHIN REACH.
[2017-05-06 08:00] VITALS: BP 134/81
--- NOTE | 2017-05-06 08:27 | NUR ---
CM NOTE FAXED CONCURRENT REVIEW TO [facility] [phone] DARIAN [phone]
[2017-05-06] MEDS: TAMSULOSIN 0.4 MG CAP PO SCH (08:36)
[2017-05-06] MEDS: DOCUSATE SODIUM 100 MG GELCAP PO SCH ×2 (08:36→21:11)
[2017-05-06] MEDS: LACTOBACILLUS RHAMNOSUS GG 1 EACH CAP PO SCH (08:37)
[2017-05-06] MEDS: carBAMazepine 200 MG TAB PO SCH ×2 (08:38→21:11)
[2017-05-06] MEDS: levETIRAcetam 1,000 MG in NACL 0.9% 100 ML IV SCH ×2 (09:14→21:29)
[2017-05-06 12:00] VITALS: BP 134/82
--- NOTE | 2017-05-06 13:25 | NUR ---
SEEN WATCHING TV AT THIS TIME. NO DISCOMFORT NOTED. CALL LIGHT WITHIN REACH.
--- NOTE | 2017-05-06 13:54 | NUR ---
CM NOTE PER [facility] CM DARIAN, THEY WILL NOT AUTHORIZE A NEW WHEELCHAIR IF REQUESTED BECAUSE THEY JUST AUTHORIZED ONE IN 2016
--- NOTE | 2017-05-06 19:08 | NUR ---
RECD. RESTING IN BED, AWAKE, A/OX2, RESPIRATION EVEN AND UNLABORED. IV OF NS AT TKO INFUSING, RIGHT HAND G 22.OFF 02 CANNULA, 02 SAT - 91%. RT CAME PUT ON AT 2 LITERS, 02 SAT - 94%. INCISION IN THE ABDOMEN COVERED WITH DRESSING, DRY AND INTACT. ON BILATERAL LEG SEQUENTIALS. PLAN OF CARE FOR THE SHIFT DISCUSSED. NEEDS REINFORCEMENT. SAFETY MEASURES ENFORCED. SIDE RAILS PADDED, SEIZURE PRECAUTION. DENIES PAIN 0/10.
--- NOTE | 2017-05-06 19:08 | NUR ---
BEDSIDE REPORT GIVEN TO BLADIMIR MAYORGA. IVF INFUSING WELL. IN STABLE CONDITION.
--- NOTE | 2017-05-06 19:30 | NUR ---
Patient's Plan of Care was discussed and reviewed with DIRECTOR OF SEARCH ENGINE OPTIMIZATION: CORNELIO
--- NOTE | 2017-05-06 21:11 | NUR ---
DUE PO MEDICATIONS GIVEN, TOLERATED WELL.
--- NOTE | 2017-05-06 21:20 | NUR ---
NO BM YET, PRUNE JUICE GIVEN.
[2017-05-07] VITALS: BP 110/69
--- NOTE | 2017-05-07 | NUR ---
STILL AWAKE, RESTING IN BED COMFORTABLY.
[2017-05-07] MEDS: HYDRAGUARD CREAM TP SCH ×2 (01:00→13:00)
--- NOTE | 2017-05-07 01:00 | NUR ---
CLEANSED AND REPOSITIONED IN BED FOR COMFORT. INCONTINENT DERMATITIS AT SACRAL ALMOST HEALED.
--- NOTE | 2017-05-07 04:00 | NUR ---
SLEEPING COMFORTABLY IN BED.
[2017-05-07 05:56] LABS: BASOPHILS # (AUTO) 0.1 K/uL (0.00-0.22); BASOPHILS % (AUTO) 1.2 % (0.0-2.0); EOSINOPHILS # (AUTO) 0.4 K/uL (0-0.4); EOSINOPHILS % (AUTO) 4.2 % (0.0-4.0); HEMOGLOBIN 11.4 g/dL (12.0-16.0); LYMPHOCYTES # (AUTO) 1.6 K/uL (2.5-16.5); LYMPHOCYTES % (AUTO) 16.1 % (20.5-51.1); MEAN CORPUSCULAR HEMOGLOBIN 26 pg (27-31); MEAN CORPUSCULAR HGB CONC 32 g/dL (33-37); MEAN CORPUSCULAR VOLUME 81 fL (80-94); MONOCYTES # (AUTO) 0.9 K/uL (0.8-1.0); NEUTROPHILS # (AUTO) 6.9 K/uL (1.8-7.7); NEUTROPHILS % (AUTO) 69.5 % (42.2-75.2); PLATELET COUNT (AUTO) 289 K/uL (140-450); RED BLOOD CELL COUNT(AUTO) 4.34 MIL/uL (4.20-5.40); WHITE BLOOD COUNT (AUTO) 9.9 K/uL (4.8-10.8)
[2017-05-07 06:14] LABS: CARBON DIOXIDE 30.7 mmol/L (21-32); CREATININE 0.4 mg/dL (0.6-1.3); POTASSIUM 3.7 mmol/L (3.5-5.1)
[2017-05-07 06:16] LABS: MAGNESIUM 2.1 mg/dL (1.8-2.4); PHOSPHORUS 4.1 mg/dL (2.5-4.9)
[2017-05-07] MEDS: PANTOPRAZOLE 40 MG TABEC PO SCH (06:29)
--- NOTE | 2017-05-07 06:59 | NUR ---
CONDITION REMAIN STABLE. NO BM YET, DR. RAUSCH AWARE. WILL ENDORSE TO AM NURSE FOR CONTINUITY OF CARE.
--- NOTE | 2017-05-07 07:20 | NUR ---
ENDORSED TO ESTRADA JACKSON FOR CONTINUITY OF CARE.
--- NOTE | 2017-05-07 07:21 | NUR ---
RECEIVED BEDSIDE REPORT FROM MUSIC INTERNSHIP NURSE, PT AWAKE AND ALERT, NO SIGNS OF ACUTE DISTRESS. BOWEL SOUNDS ACTIVE IN ALL 4 QUADRANTS. BOWEL AND BLADDER INCONTINENCE. BEDBOUND. LOWER ABDOMINAL INCISION COVERED WITH DRY DRESSING FROM EXPLORATORY LAPAROTOMY WITH DR WICK ON 05/05. IV PATENT AND ASYMPTOMATIC. RE-ORIENTED TO HOSPITAL AND TO UNIT, PATIENT VERBALIZED UNDERSTANDING. PT HAS CEREBRAL PALSY AND PRIMARY LANGUAGE IS CYMRAES. BED IN LOW POSITION WITH BILATERAL HALF SIDE RAILS UP, CALL LIGHT WITHIN REACH. WILL CONTINUE TO MONITOR.
[2017-05-07 08:00] VITALS: BP 116/74
[2017-05-07] MEDS ORDERED: SODIUM PHOSPHATE 118 ML ENEM RC SCH (08:00)
--- NOTE | 2017-05-07 09:05 | NUR ---
PERFORMED FLEET ENEMA. NO BM AT THIS TIME. WILL CONTINUE TO MONITOR.
[2017-05-07] MEDS: TAMSULOSIN 0.4 MG CAP PO SCH (09:16)
[2017-05-07] MEDS: DOCUSATE SODIUM 100 MG GELCAP PO SCH (09:16)
[2017-05-07] MEDS: carBAMazepine 200 MG TAB PO SCH (09:17)
[2017-05-07] MEDS: LACTOBACILLUS RHAMNOSUS GG 1 EACH CAP PO SCH (09:17)
[2017-05-07] MEDS: levETIRAcetam 1,000 MG in NACL 0.9% 100 ML IV SCH (09:17)
--- NOTE | 2017-05-07 10:20 | NUR ---
PATIENT HAD A MODERATE SIZED, BROWN, SOFT AND FORMED BM.
--- NOTE | 2017-05-07 10:34 | NUR ---
TOOK PATIENT OFF OF OXYGEN FOR APPROXIMATELY 10 MINUTES. CHECKED PATIENT O2 SAT ON ROOM AIR AFTER 10 MINUTES WITHOUT NC, OXYGEN SATURATION OF 92%. WILL CONTINUE TO MONITOR.
--- NOTE | 2017-05-07 11:12 | NUR ---
CM NOTE FAXED CONCURRENT REVIEW TO [facility] [phone] DARIAN [phone]
--- NOTE | 2017-05-07 12:00 | NUR ---
PT RESTING COMFORTABLY IN BED ON ROOM AIR. OXYGEN SATURATION 92%, WILL CONTINUE TO MONITOR. BED IN LOW POSITION WITH BILATERAL HALF SIDE RAILS UP, CALL LIGHT WITHIN REACH. PT FAMILY AT BEDSIDE.
--- NOTE | 2017-05-07 13:00 | NUR ---
CHANGED PATIENT DRESSING, MINIMAL SEROSANGUINOUS DRAINAGE NOTED. APPLIED NEW DRY, CLEAN ABDOMINAL PAD AND SECURED WITH PAPER TAPE. WILL CONTINUE TO MONITOR.
--- NOTE | 2017-05-07 14:10 | NUR ---
PT RESTING COMFORTABLY IN BED WATCHING TELEVISION. NO SIGNS OF ACUTE DISTRESS. BED IN LOW POSITION WITH BILATERAL HALF SIDE RAILS UP, CALL LIGHT WITHIN REACH. WILL CONTINUE TO MONITOR.
[2017-05-07 16:00] VITALS: BP 133/79
[2017-05-07] MEDS ORDERED: CEPH250C16 PO (16:03)
[2017-05-07] MEDS ORDERED: LACT-2 (16:05)
[2017-05-07] MEDS ORDERED: OMEP20TC24 PO (17:16)
--- NOTE | 2017-05-07 17:40 | NUR ---
PT AWAKE AND ALERT, NO SIGNS OF ACUTE DISTRESS. EDUCATED PATIENT AND FAMILY ON SIGNS AND SYMPTOMS OF INFECTION AND WORSENING CONDITION, FOLLOW UP WITH PCP AND SURGEON, NEW PRESCRIPTIONS AND RESUMING LIGHT ACTIVITY, PT AND FAMILY VERBALIZED UNDERSTANDING, PT UNABLE TO COMPREHEND. PATIENT DENIES PAIN AT THIS TIME. CUT OFF WRIST BANDS AND TOOK OUT IV. WHEELED PATIENT OUT TO FRONT LOBBY TO GO HOME VIA PRIVATE AUTO.
== END 2017-05-07 17:40 | disposition home or self-care (01) | DRG 853 ==
LOC: MED 08:49 → MTU 11:22
PROVIDERS: ADMIT Family Medicine; ATTEND Family Medicine
PROC: 0UB10ZZ Excision of Left Ovary, Open Approach (ICD-10-PCS; principal; 2017-05-05 08:45)
DX: A41.9 Sepsis, unspecified organism (principal); E43 Unspecified severe protein-calorie malnutrition; E87.8 Other disorders of electrolyte and fluid balance, not elsewhere classified; N39.0 Urinary tract infection, site not specified; E87.1 Hypo-osmolality and hyponatremia; N13.30 Unspecified hydronephrosis; K21.9 Gastro-esophageal reflux disease without esophagitis; G40.909 Epilepsy, unspecified, not intractable, without status epilepticus; G80.9 Cerebral palsy, unspecified; E66.9 Obesity, unspecified; D27.1 Benign neoplasm of left ovary; N31.9 Neuromuscular dysfunction of bladder, unspecified; R73.03 Prediabetes; Q66.89 Other specified congenital deformities of feet; Z68.39 Body mass index [BMI] 39.0-39.9, adult; Z91.040 Latex allergy status; Z90.49 Acquired absence of other specified parts of digestive tract; Z83.3 Family history of diabetes mellitus; Z81.8 Family history of other mental and behavioral disorders; Z82.3 Family history of stroke; Z82.49 Family history of ischemic heart disease and other diseases of the circulatory system
CPT/HCPCS: 36415; 71010; 76705; 76856; 80048; 80053; 80156; 80173; 81001; 82140; 82150; 83036; 83605; 83690; 83735; 83880; 84100; 84439; 84443; 84484; 85025; 85610; 85730; 86886; 86900; 86901; 87040; 87081; 87086; 88307; 93005; 93925; 93970; 96361; 96365; 96375; 99285; C1758; J0696; J1170; J1953; J2175; J2250; J2270; J2405; J2704; J3010; J3490; J7030; J7060; J7120; Q0092; Q9967